=== PATIENT | female | born 1965 | race Caucasian/White ===

== ENCOUNTER 2016-08-01 10:37 | Emergency (ER) | END 2016-08-01 14:50 | disposition home or self-care (01) | DX: R10.9 Unspecified abdominal pain (principal); N30.00 Acute cystitis without hematuria | CPT/HCPCS: 74176; 80053; 81001; 83690; 85025; 87086; J7030; Z7502; Z7610 ==

== ENCOUNTER 2017-06-24 13:51 | Emergency (ER) | END 2017-06-24 18:00 | disposition home or self-care (01) ==

== ENCOUNTER 2017-08-16 16:20 | Emergency (ER) | END 2017-08-16 21:18 | disposition home or self-care (01) ==

== ENCOUNTER 2017-09-05 11:12 | Emergency (ER) | END 2017-09-05 14:24 | disposition left against medical advice (07) ==